=== PATIENT | female | born 1970 | race Two or more races ===

== ENCOUNTER 2023-03-26 11:03 | Outpatient (CLI) | payer OTHER | END 2023-03-26 11:09 | disposition home or self-care (01) | LOC: SONOGRAMA 11:03 | PROVIDERS: ATTEND Pathology Anatomic Pathology & Clinical Pathology | DX: D44.0 Neoplasm of uncertain behavior of thyroid gland (principal) ==

== ENCOUNTER 2023-10-19 11:54 | Outpatient (CLI) | payer OTHER | END 2023-10-19 11:56 | disposition home or self-care (01) | LOC: SONOGRAMA 11:54 | PROVIDERS: ATTEND Pathology Anatomic Pathology & Clinical Pathology | DX: D44.0 Neoplasm of uncertain behavior of thyroid gland (principal); E07.9 Disorder of thyroid, unspecified ==